=== PATIENT | male | born 1960 | race Caucasian/White ===

== ENCOUNTER 2021-04-18 15:23 | Emergency (ER) | payer BC ==
[~2021-04-18] VITALS: Wt 104.3 kg
[~2021-04-18 15:23] MED LIST: PRINIVIL5 M1 PO
== END 2021-04-18 16:18 | disposition home or self-care (01) ==
LOC: ED 15:23
DX: H10.9 Unspecified conjunctivitis (principal)

== ENCOUNTER 2023-06-30 16:08 | Emergency (ER) | payer OTHER ==
[~2023-06-30] VITALS: Ht 177.8 cm; Wt 99.8 kg
[2023-06-30 16:43] LABS: BASO % 0.4 % (0.0-1.0); EOS # 0.1 10*3/uL (0.0-0.4); EOS % 0.7 % (1.0-4.0); HEMATOCRIT 49.5 % (42.0-52.0); LYMPH # 1.1 10*3/uL (1.3-4.4); LYMPH % 9.7 % (27.0-41.0); MEAN CELL VOLUME 83.1 fl (80.0-94.0); MEAN CORPUSCULAR HGB CONC 33.7 g/dl (33.0-37.0); MEAN PLATELET VOLUME 10.4 fl (9.6-12.3); MONO # 0.3 10*3/uL (0.1-1.0); NEUT # 9.3 10*3/uL (2.3-7.9); NEUT % 85.7 % (47.0-73.0); PLATELET COUNT AUTOMATED 239 10*3/uL (130-400); RED BLOOD COUNT 5.96 10*6/uL (4.50-5.90); RED CELL DISTRI WIDTH 14.5 % (0-14.5); WHITE BLOOD COUNT 10.8 10*3/uL (4.8-10.8)
[2023-06-30 16:53] LABS: ACT PARTIAL THROMBO TIME 25.6 SECONDS (20.0-32.1)
[2023-06-30 17:02] LABS: ALKALINE PHOSPHATASE 69 U/L (46-116); BUN 17 mg/dl (9-23); CHLORIDE 105 mmol/L (98-107); LIPASE 119 U/L (12-53); POTASSIUM 3.9 mmol/L (3.4-5.1); SGPT/ALT 72 U/L (5-49); TOTAL PROTEIN 7.4 gm/dL (6.0-8.0)
== END 2023-06-30 20:34 | disposition home or self-care (01) ==
LOC: ED 16:08
PROVIDERS: Internal Medicine
DX: K20.90 Esophagitis, unspecified without bleeding (principal); R79.89 Other specified abnormal findings of blood chemistry; R74.8 Abnormal levels of other serum enzymes; Z79.899 Other long term (current) drug therapy

== ENCOUNTER 2025-02-08 12:19 | Emergency (ER) | payer OTHER ==
[~2025-02-08] VITALS: Ht 177.8 cm; Wt 108.9 kg
[2025-02-08] MEDS ORDERED: AMOX-CLAV 875-1 EACH PO (13:02)
[2025-02-08] MEDS ORDERED: VALTREX1000 MG PO (13:02)
[2025-02-08] MEDS ORDERED: Amoxicillin/Clavulanate Pota 875 MG TAB PO ONE (13:05)
== END 2025-02-08 13:23 | disposition home or self-care (01) ==
LOC: ED 12:19
DX: A46 Erysipelas (principal)